=== PATIENT | male | born 1955 | race Caucasian/White ===

== ENCOUNTER → 2017-10-24 | Outpatient (CLI) | payer OTHER ==
--- NOTE | 2017-10-24 11:00 | US ---
EXAMINATION TYPE: US abdomen complete DATE OF EXAM: 10/24/2017 COMPARISON: CT 09/26/2012 CLINICAL HISTORY: R10.9 Abdominal Pain. Intermittent RUQ pain x 1 month. Patient hx of rt renal calcu li removed and stent removed. EXAM MEASUREMENTS: Liver Length: 16.7 cm Gallbladder Wall: 0.2 cm CBD: 0.3 cm Spleen: 11.0 cm Right Kidney: 9.8 x 4.9 x 4.3 cm Left Kidney: 14.3 x 5.9 x 5.8 cm Pancreas: Obscured by bowel gas Liver: Increased attenuation, hypoechoic area near Gb = 2.5 x 2.6 x 2.2 cm? focal sparing. Gallbladder: wnl Evidence for sonographic [place]'s sign: No CBD: wnl Spleen: wnl Right Kidney: smaller in size, decreased renal cortex. Left Kidney: wnl Upper IVC: wnl Abd Aorta: Bifurcation Obscured by overlying bowel gas IMPRESSION: 1. Some focal spurring fatty sparing adjacent to the gallbladder bed fossa may be present within the liver. 2. Visualized abdomen ultrasound is otherwise unremarkable.
== END | disposition home or self-care (01) ==
LOC: RADUSWWP 08:00
PROVIDERS: ATTEND Family Medicine
DX: R93.3 Abnormal findings on diagnostic imaging of other parts of digestive tract (principal); R10.9 Unspecified abdominal pain
CPT/HCPCS: 76700

== ENCOUNTER → 2017-11-15 | Outpatient (CLI) | payer OTHER ==
--- NOTE | 2017-11-16 14:37 | EST ---
EXERCISE STRESS DATE OF SERVICE: 11/15/2017 AGE: 62 SEX: Male HT: 5'9" WT: 215 pounds PROTOCOL: Ilan STAGE: III DURATION OF EXERCISE: 7 minutes HEART RATE REST: 73 BLOOD PRESSURE REST: 122/81 MAXIMUM HEART RATE ACHIEVED: 137 MAXIMUM BLOOD PRESSURE: 197/72 85% MPHR: 130 100% MPHR: 157 METS: 8.5 INDICATIONS: Chest pain. CLINICAL INFORMATION: STRESS DATA: Pretesting physical examination showed a heart rate of 73, pressure is 122/81 mmHg. Baseline EKG showed sinus mechanism. The patient exercised on the treadmill according to Ilan protocol for a total of 7 minutes and achieved 8.5 METs. Max heart rate was 197/72 mmHg. Clinically the patient did not have any symptoms of chest pain or chest discomfort during the testing or on recovery. The EKG showed about 0.[address]-segment depression. CONCLUSION: 1. Good exercise tolerance. 2. Mild EKG changes in response to exercise. [facility]MCAMILLEL / IJN: [id number] /
== END | disposition home or self-care (01) ==
LOC: RADNMMAIN 11:01
PROVIDERS: ATTEND Family Medicine
DX: R07.89 Other chest pain (principal)
CPT/HCPCS: 93017